=== PATIENT | female | born 1955 | race Caucasian/White ===

== ENCOUNTER 2024-02-21 11:10 | Emergency (ER) | payer MEDICARE, SELFPAY ==
[2024-02-21] VITALS (13 sets, daily range): BP systolic 141–171; BP diastolic 60–83; PULSE 59–79; RESP 15–25; TEMP 37; O2SAT 96–98; BMI 31.3
--- NOTE | 2024-02-21 11:26 | DI.RAD.S_ITS ---
PROCEDURE: XR CHEST 1V INDICATIONS: chest pain TECHNIQUE: One view of the chest was acquired. COMPARISON: None. FINDINGS: Surgical changes and devices: None. Lungs and pleura: Lungs are clear. No pleural effusions or pneumothorax. Mediastinum: Mediastinal contours appear normal. Heart size is normal. Bones and chest wall: No suspicious bony lesions. Overlying soft tissues appear unremarkable. IMPRESSION: No acute cardiopulmonary pathology. Dictated by: Rolando Clifford M.D. on 02/21/2024 at 11:38 Approved by: Rolando Clifford M.D. on 02/21/2024 at 11:38
--- NOTE | 2024-02-21 11:29 | EKG_ITS ---
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
[2024-02-21] MEDS: ASPIRIN 81 MG CHEW TAB 324 MG PO (11:42)
[2024-02-21 11:56] LABS: INR 0.9 (0.9-1.3); Prothrombin Time 10.4 SECONDS (9.4-12.5)
[2024-02-21 11:59] LABS: PTT Partial Thromboplastin Tim 32 SECONDS (25.1-36.5)
[2024-02-21 12:00] LABS: Add Manual Diff / Slide Review NO; Basophils Absolute Auto 0 /uL (0-100); Basophils Percent Auto 0.5 % (0-2); Eosinophils Absolute Auto 100 /uL (0-450); Eosinophils Percent Auto 1.6 % (2-4); Lymphocytes Absolute Auto 1100 /uL (1100-4500); Lymphocytes Percent Auto 12.7 % (25-40); Mean Corpuscular HGB Conc 34.3 % (30-36); Mean Corpuscular Hemoglobin 33.5 PG (26-34); Mean Corpuscular Volume 97.8 fL (80-100); Monocytes Absolute Auto 700 /uL (0-900); Monocytes Percent Auto 8.5 % (3-14); Neutrophils Absolute Auto 6400 /uL (1500-7000); Neutrophils Percent Auto 76.7 % (50-75); Platelet Count 234 X10^3/uL (150-400); Red Blood Cell Count 4.19 X10^6/uL (4.0-5.2); Red Cell Distribution Width 12.9 % (11.6-14.8); White Blood Cell Count 8.3 X10^3/uL (4.5-11.0)
[2024-02-21 12:02] LABS: Alanine Aminotransferase 42 IU/L (<35); Albumin 4.5 g/dL (3.5-5.0); Albumin Globulin Ratio 1.7 (1.0-2.8); Alkaline Phosphatase 53 U/L (38-126); Aspartate Aminotransferase 35 IU/L (14-36); Bilirubin Total 0.7 mg/dL (0.2-1.3); Blood Urea Nitrogen 20 mg/dL (7-17); Calcium 9.1 mg/dL (8.4-10.2); Carbon Dioxide 25 mmol/L (22-32); Chloride 105 mmol/L (98-107); Creatine Kinase 118 U/L (30-135); Estimated Glomerular Filt Rate > 60 mL/min (>60); Globulin 2.7 g/dL (1.7-4.1); Glucose 141 mg/dL (80-110); HEMOLYSIS < 15 (0-50); Lipase 70 U/L (23-300); Potassium 4.2 mmol/L (3.4-5.1); Sodium 138 mmol/L (137-145); Total Protein 7.2 g/dL (6.3-8.2)
--- NOTE | 2024-02-21 12:05 | ED.CHESTPAIN ---
HPI - Chest Pain General Chief Complaint: Chest Pain Stated Complaint: chest pain Time Seen by Provider: 02/21/24 12:03 Source: patient Mode of arrival: Family Vehicle History of Present Illness HPI narrative: 68-year-old woman with left-sided chest pain that started left posterior ribs is now wrapping forward warts with a deep breath and can be relieved with positioning. Not associated with orthopnea, dyspnea she has not had a recent cough, no upper respiratory infections. She has not describing any rashes. She and her are heading up and their boat to [place] and wanted some reassurance before the were in such isolated [place]. Related Data Previous Rx's Medication Instructions Recorded valacyclovir 1 gram tablet 1,000 mg PO Q8H #21 tabs 02/21/24 Allergies Allergy/AdvReac Type Severity Reaction Status Date / Time No Known Drug Allergies Allergy Verified 02/21/24 11:26 Review of Systems Review of Systems Narrative: Pertinent positive and negative findings as per HPI Patient History Social History Smoking Status: Never smoker Smoking Status: Never smoker Substance Use Type: does not use Exam Initial Vital Signs Initial Vital Signs: Vital Signs Temperature 98.6 F 02/21/24 11:24 Pulse Rate 79 02/21/24 11:24 Respiratory Rate 16 02/21/24 11:24 Blood Pressure 171/83 H 02/21/24 11:24 Pulse Oximetry 98 02/21/24 11:24 Oxygen Delivery Method Room Air 02/21/24 11:24 General: Healthy appearing, in no acute distress. Able to give a complete and coherent history. Well-nourished well-developed HEENT: Moist mucous membranes, normal sclera with reactive pupils, Neck: No JVD, supple Respiratory: Lungs are clear to auscultation, no wheezing no rales no rhonchi. Full and symmetrical air movement Chest: No tenderness with AP compression. No skin changes to suggest zoster Cardiac: Regular rate and rhythm no murmurs no bruits Abdomen: Soft, mild tenderness in the left upper quadrant consistent with her initial complaints, good bowel tones, no flank pain Skin: Warm and dry, no rashes Neurologic: Grossly neurologically intact with no obvious asymmetries or abnormalities Extremities: No trauma, well perfused Psych: Cooperative, appropriate insight and affect Course Orders Ordered: ED Orders 02/21/24 11:26 XR chest 1V Stat EKG-12 Lead Stat 02/21/24 11:40 Complete Blood Count AUTO DIFF Stat Comprehensive Metabolic Panel Stat Lipase Stat Magnesium Stat NT-proBNP (BNP-Adult 18+) Stat PTT Partial Thromboplastin Aaron Stat Prothrombin Time INR Stat Troponin & CK Cardiac Panel Stat 02/21/24 14:47 Trop I [Troponin I] Stat Discontinued Medications Aspirin (Aspirin 81 Mg Chew Tab) 324 mg PO NOW ONE Stop: 02/21/24 11:27 Last Admin: 02/21/24 11:42 Dose: 324 mg Documented By: VERA Vital Signs Vital signs: Vital Signs - 8 hr 02/21/24 11:24 02/21/24 11:50 02/21/24 12:00 Temperature 98.6 F Pulse Rate 79 69 68 Respiratory Rate 16 22 Blood Pressure 171/83 H Pulse Oximetry 98 98 Oxygen Delivery Method Room Air 02/21/24 12:30 02/21/24 12:31 02/21/24 12:31 Temperature Pulse Rate 64 64 Respiratory Rate 21 19 Blood Pressure 170/81 H Pulse Oximetry 97 97 Oxygen Delivery Method 02/21/24 12:45 02/21/24 12:45 02/21/24 13:00 Temperature Pulse Rate 68 Respiratory Rate 16 Blood Pressure 163/74 H 154/60 H Pulse Oximetry 98 Oxygen Delivery Method 02/21/24 13:00 02/21/24 13:30 02/21/24 13:30 Temperature Pulse Rate 65 64 Respiratory Rate 25 H 23 Blood Pressure 141/71 H Pulse Oximetry 97 97 Oxygen Delivery Method 02/21/24 14:00 02/21/24 14:30 Temperature Pulse Rate 61 62 Respiratory Rate 15 20 Blood Pressure Pulse Oximetry 96 96 Oxygen Delivery Method MDM - Chest Pain Lab Data 02/21/24 11:40 02/21/24 11:40 Labs: Lab Results 02/21/24 Range/Units 11:40 WBC 8.3 (4.5-11.0) X10^3/uL RBC 4.19 (4.0-5.2) X10^6/uL Hgb 14.0 (12.0-16.0) g/dL Hct 41.0 (36-46) % MCV 97.8 (80-100) fL MCH 33.5 (26-34) PG MCHC 34.3 (30-36) % RDW 12.9 (11.6-14.8) % Plt Count 234 (150-400) X10^3/uL Neut % (Auto) 76.7 H (50-75) % Lymph % (Auto) 12.7 L (25-40) % [place] % (Auto) 8.5 (3-14) % Eos % (Auto) 1.6 L (2-4) % Baso % (Auto) 0.5 (0-2) % Neut # (Auto) 6400 (4842-6564) /uL Lymph # (Auto) 1100 (9922-3906) /uL [place] # (Auto) 700 (0-900) /uL Eos # (Auto) 100 (0-450) /uL Baso # (Auto) 0 (0-100) /uL PT 10.4 (9.4-12.5) SECONDS INR 0.9 (0.9-1.3) APTT 32 (25.1-36.5) SECONDS Sodium 138 (137-145) mmol/L Potassium 4.2 (3.4-5.1) mmol/L Chloride 105 (98-107) mmol/L Carbon Dioxide 25 (22-32) mmol/L BUN 20 H (7-17) mg/dL Creatinine 0.74 (0.52-1.04) mg/dL Estimated GFR > 60 (>60) mL/min BUN/Creatinine Ratio 27.0 H (6-22) Glucose 141 H (80-110) mg/dL Calcium 9.1 (8.4-10.2) mg/dL Magnesium 2.0 (1.6-2.3) mg/dL Total Bilirubin 0.7 (0.2-1.3) mg/dL AST 35 (14-36) IU/L ALT 42 H (<35) IU/L Alkaline Phosphatase 53 (38-126) U/L Total Creatine Kinase 118 (30-135) U/L Troponin I < 0.012 (0.01-0.034) ng/mL NT-Pro-B Natriuret Pep 51 (<125) pg/mL Total Protein 7.2 (6.3-8.2) g/dL Albumin 4.5 (3.5-5.0) g/dL Globulin 2.7 (1.7-4.1) g/dL Albumin/Globulin Ratio 1.7 (1.0-2.8) Lipase 70 (23-300) U/L MDM Narrative Medical decision making narrative: CC: Left-sided chest pain, bandlike, worse with deep breathing Complicating co-morbidities: Hypertension, hyperlipidemia no diabetes Data collected from: patient, Social determinants of health that may influence the patients condition: Traveling on their sailboat Differential considered: Pleurisy, shingles, rib fracture, musculoskeletal pain, pleural effusion, acute coronary syndrome Exam documented above, pertinent findings include: Exam is entirely benign Lab Test results independently reviewed as above. Pertinent findings: CBC is unremarkable Chemistries are reassuring. First and 2nd troponins are undetectable Independently reviewed EKG: Sinus rhythm at a rate of 74. No acute ischemic changes Imaging studies independently reviewed: Chest x-ray is unremarkable Discussion: 68-year-old woman with history of hypertension, hyperlipidemia presents with left-sided bandlike pain just under her breast. Workup does not show effusion, pneumothorax, pneumonia, acute coronary syndrome. With the very anatomic distribution possibility of shingles prodrome is entertained and discussed with her and her (a retired surgeon) in detail. Discussed musculoskeletal pain and treatment for this. She is also given a prescription for [place] acyclovir to begin should she notice any vesicles breaking out of the next 24-48 hours. There was no indication for additional imaging, blood work or hospital admission at this time, questions are answered Discharge Plan Departure Patient Disposition: Home Clinical Impression: Chest pain, musculoskeletal Instructions: DI for Shingles, DI for Musculoskeletal Pain Activity Restrictions/Additional Instructions: Thank you for coming in today Your workup does not show any suggestion of heart attack, collapsed lung, pneumonia or other findings that are life-threatening. With such a very specific distribution of your pain I am wondering if this may be pain from shingles. When you have have shingles vaccine sometimes the presentation isn't quite so impressive. You can still have the prodromal pain syndrome. Using 400 mg of ibuprofen (2 [id number] pills) and 1 Tylenol every 6 hours can be very helpful in controlling pain. I am going to give you a prescription for Valacyclovir to begin if you notice any redness or blisters. It may be only a few blisters because you have been vaccinated. If this is shingles, most people notice a rash within 3 days of the prodromal pain starting. I hope your trip up into the [facility] goes well. Prescriptions: New valacyclovir 1 gram tablet 1,000 mg PO Q8H Qty: 21 0RF Stand Alone Forms: Patient Portal/API
[2024-02-21 12:13] LABS: NT-proBNP (BNP-Adult 18+) 51 pg/mL (<125); Troponin I < 0.012 ng/mL (0.01-0.034)
[2024-02-21 15:19] LABS: Troponin I < 0.012 ng/mL (0.01-0.034)
== END 2024-02-21 15:53 | disposition home or self-care (01) ==
PROVIDERS: Emergency Provider Emergency Medicine
DX: R07.89 Other chest pain (principal)
CPT/HCPCS: 36415; 71045; 80053; 82550; 83690; 83735; 83880; 84484; 85025; 85610; 85730; 93005; 99284